=== PATIENT | male | born 1990 | race Hispanic/Latino ===

== ENCOUNTER 2018-05-22 00:16 | Inpatient (IN) | payer MEDICARE, MEDICAID ==
[2018-05-22 00:17] VITALS: BMI 26.3
[2018-05-22 00:20] VITALS: O2SAT 99
--- NOTE | 2018-05-22 00:36 | C.PDOC ---
History Of Present Illness The patient is brought to the ED via ambulance as a transfer for psychiatric admission. Patient was evaluated at [facility] prior to arrival and has been medically cleared and admitted to this hospital's psychiatric floor. Patient denies any physical complaints at this time. Time Seen by Provider: 05/22/18 00:33 Chief Complaint (Nursing): Psychiatric Evaluation History Per: Patient History/Exam Limitations: no limitations Onset/Duration Of Symptoms: Hrs Current Symptoms Are (Timing): Still Present Suicide/Self Injury Attempted (Context): None Severity: None Pain Scale Rating Of: 0 Involuntary Hold By: None Recent travel outside of the [place]: No Additional History Per: Patient Past Medical History Reviewed: Historical Data, Nursing Documentation, Vital Signs Vital Signs: Last Vital Signs Temp 98.4 F 05/22/18 00:20 Pulse 103 H 05/22/18 00:20 Resp 16 05/22/18 00:20 BP 142/96 H 05/22/18 00:20 Pulse Ox 99 05/22/18 00:20 - Medical History PMH: Anxiety, Asthma (as a child), Bipolar Disorder, Depression, Gastritis, HTN (not taking meds), Migraine, Personality Disorder, Pneumonia, Post Traumatic Stress Disorder, Seizures Denies: Arthritis, Cardia Arrhythmia, CHF, Diabetes, Hepatitis, HIV, Hypercholesterolemia, Mitral Valve Prolapse, Paranoia, Peripheral Edema, Chronic Kidney Disease, Schizophrenia, Sexually Transmitted Disease Surgical History: Appendectomy Denies: Cholecystectomy, Coronary Stent, Pacemaker - [facility] Procedures CONTINUOUS INVASIVE MECHANICAL VENTILATION <96 CONSEC HRS (04/17/14) ESOPHAGOGASTRODUODENOSCOPY [EGD] W/CLOSED BIOPSY (04/20/07) GROUP PSYCHOTHERAPY (12/24/15) INDIVIDUAL PSYCHOTHERAPY, SUPPORTIVE (12/24/15) INJECT/INFUSE NEC (04/18/06) INSERT ENDOTRACHEAL TUBE (02/26/13) INSERT GASTRIC TUBE NEC (04/17/14) INTRODUCTION OF ANTI-INFLAMMATORY INTO MUSCLE, PERC APPROACH (08/22/15) INTRODUCTION OF LOCAL ANESTHETIC INTO MUSCLE, PERC APPROACH (08/22/15) LAPAROSCOP APPENDECTOMY (03/31/12) MEDICATION MANAGEMENT (09/19/15) NEBULIZER THERAPY (02/19/07) PSYCHIAT DRUG THERAP NEC (12/12/14) VACCINATION NEC (02/26/13) Family History: States: Unknown Family Hx - Social History Hx Tobacco Use: Yes Hx Alcohol Use: No Hx Substance Use: No - Immunization History Hx Tetanus Toxoid Vaccination: No Hx Influenza Vaccination: No Hx Pneumococcal Vaccination: No Review Of Systems Constitutional: Negative for: Fever, Chills Cardiovascular: Negative for: Chest Pain, Palpitations Respiratory: Negative for: Cough, Shortness of Breath Gastrointestinal: Negative for: Nausea, Vomiting, Abdominal Pain Skin: Negative for: Rash, Lesions, Jaundice, Bruising Psych: Positive for: Other (psychiatric admission ) Physical Exam - Physical Exam Appears: Non-toxic, No Acute Distress Skin: Warm, Dry Head: Normacephalic Chest: Symmetrical, No Deformity Cardiovascular: Rhythm Regular, No Murmur Respiratory: No Rales, No Rhonchi, No Wheezing Extremity: Normal ROM Neurological/Psych: Oriented x3 ED Course And Treatment O2 Sat by Pulse Oximetry: 99 Disposition Discussed With DrChris: Piter Figueroa Comment: accepted the pt on his service and took over the care at 12:36 AM Doctor Will See Patient In The: Hospital Counseled Patient/Family Regarding: Studies Performed, Diagnosis - Disposition Disposition: HOSPITALIZED Disposition Time: 00:36 Condition: FAIR Forms: [employer] ([place]) - Clinical Impression Clinical Impression: Major depression, PTSD (post-traumatic stress disorder) - Scribe Statement The provider has reviewed the documentation as recorded by the Scribe (Darby Weems) Provider Attestation: All medical record entries made by the Scribe were at my direction and per sonally dictated by me. I have reviewed the chart and agree that the record accurately reflects my personal performance of the history, physical exam, medical decision making, and the department course for this patient. I have also personally directed, reviewed, and agree with the discharge instructions and disposition. Decision To Admit - Pt Status Changed To: Hospital Disposition Of: Inpatient - Admit Certification Admit to Inpatient:: After my assessment, the patient will require hospitalization for at least two midnights. This is because of the severity of symptoms shown, intensity of services needed, and/or the medical risk in this patient being treated as an outpatient. - InPatient: Physician Admission Certification: I certify that this patient requires 2 or more midnights of care for the following reason:: After my assessment, the patient will require hospitalization for at least two midnights. This is because of the severity of symptoms shown, intensity of services needed, and/or the medical risk in this patient being treated as an outpatient. - . Bed Request Type: Psychiatry Admitting Physician: Piter Figueroa Patient Diagnosis: Major depression, PTSD (post-traumatic stress disorder)
--- NOTE | 2018-05-22 05:14 | PCM.BM ---
<Ahmet Londono Izzy - Last Filed: 05/22/18 05:12> Treatment Plan Problems - Problems identified on initial assessmt Suicidal Ideation Date Initiated: 05/22/18 Time Initiated: 01:15 Assessment reference: NA Status: Monitor Ineffective Coping Date Initiated: 05/22/18 Time Initiated: 01:15 Assessment reference: NA Status: Active Treatment assets and liabiliti Patient Assests: cooperative, ADL independent, negotiates basic needs, cognitively intact Patient Liabilities: relationship conflicts - Milieu Protocol Maintain good personal hygiene: daily Encourage regular showers, daily Remind pa tient to perform daily oral care, daily Assist patient to perform ADL's Conduct patient checks and document Observation sheet: Q15 minutes Maintain personal safety: every shift Educate patient to report safety concerns to staff, every shift Monitor environment for contraband/sharps Medication safety: Monitor for expected outcome, potential side effects: every shift, Assess barriers to learning: every shift, Assess readiness for medication education: every shift <Smita Stallworth - Last Filed: 05/22/18 12:32> Family Contact Family involvement: Patient does not wish Family/SO involvement Family contact: Patient declines to allow family contact at present - Goals for Treatment Patient goals for treatment: "I want to return to my psychiatrist, Dr. Moreno." Discharge/Continuing Care - Education Needs Education Needs: Patient Medication, Patient Diagnosis/Disease Process, Patient Coping Skills - Discharge Discharge Criteria: Free of Suicidal thoughts, Normal sleep pattern, Ability to care for self, Reduction of target symptoms Discharge to:: Home - Treatment Team Participation Discussed with Family/SO: No Was Patient/Family/SO present at Treatment Team Meeting: Yes <Jerad Perdomo - Last Filed: 05/22/18 12:44> - Diagnosis (1) Major depressive disorder Status: Acute Interventions: 05/22/18 12:43 * Assess/adjust medications daily and /or as needed * See patient on an individual basis 7x/week to assess symptoms of depression * Monitor for side effects & effectiveness of medications * (2) PTSD (post-traumatic stress disorder) Status: Acute Interventions: 05/22/18 12:43 * Assess/adjust medications daily and /or as needed * See patient on an individual basis 7x/week to assess symptoms of depression * Monitor for side effects & effectiveness of medications *
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
[2018-05-23 06:32] VITALS: BP 118/71; PULSE 91; RESP 18; TEMP 97.6
--- NOTE | 2018-05-23 10:32 | PCM.PYCHPN ---
Psychiatric Progress Note - Psychiatric Progress Note Patient seen today, length of contact: 15 min Patient Chief Complaint: I was feeling depressed and suicidal.' Medication Change: Yes Medical Record Reviewed: Yes Mental Status Examination - Cognitive Function Orientation: Person, Place, Situation, Time Memory: Intact Attention: WNL Concentration: Poor Association: WNL Fund of Knowledge: Poor - Mood Mood: Depressed, Anxious - Affect Affect: Constricted, Depressed - Speech Speech: Soft - Formal Thought Process Formal Thought Process: No Impairment - Suicidal Ideation Suicidal Ideation: No - Homicidal Ideation Homicidal Ideation: No Goal/Treatment Plan - Goal/Treatment Plan Need for Continued Stay: Discharge may exacerbated symptoms, Severe functional impairment Progress Toward Problem(s) and Goals/Treatment Plan: Bipolar depressed severe without psychotic features Borderline personality disorder General anxiety disorder History of posttraumatic stress disorder chronic History of ADHD CBT Psychoeducation and support daily As need medications All risks, benefits and alternatives of the meds discussed, and the pt agreed and understood. Attend groups and activities Individual therapy daily Encourage compliance with meds and after care Klonopin 1 mg p.o. 3 times daily Seroquel 400 mg p.o. nightly Hydroxyzine 25 mg p.o. every 6 hours as needed Ativan 1 mg p.o. every 6 hours as needed Hydroxyzine 25 mg p.o. every 6 hours as needed Neurontin 600 mg p.o. 3 times daily - Smoking Cessation Smoking Cessation Initiated: No
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
--- NOTE | 2018-05-23 23:19 | CP.PCM.CON ---
History of Present Illness - History of Present Illness History of Present Illness: Podiatry - Dr. Ruiz 28 year old male patient seen and evaluated for right great toe pain. Patient reports an elongated, incurvated nail to right great toe which causes him discomfort when ambulating. Denies any recent trauma. Denies n/v/f/d/c/sob/martin/cp. No other pedal complaints. Review of Systems - Review of Systems All systems: reviewed and no additional remarkable complaints except (as per HPI) Past Patient History - Infectious Disease Hx of Infectious Diseases: None - Tetanus Immunizations Tetanus Immunization: Unknown - Past Medical History & Family History Past Medical History?: Yes - Past Social History Smoking Status: Never Smoked - CARDIAC Hx Cardia Arrhythmia: No Hx Congestive Heart Failure: No Hx Hypercholesterolemia: No Hx Hypertension: Yes (not taking meds) Hx Mitral Valve Prolapse: No Hx Pacemaker: No Hx Peripheral Edema: No - PULMONARY Hx Asthma: Yes (as a child, reports having Ventolin PRN) Hx Pneumonia: Yes - NEUROLOGICAL Hx Migraine: Yes Hx Seizures: Yes - HEENT Hx HEENT Problems: No - RENAL Hx Chronic Kidney Disease: No - ENDOCRINE/METABOLIC Hx Endocrine Disorders: No - HEMATOLOGICAL/ONCOLOGICAL Hx Human Immunodeficiency Virus (HIV): No - INTEGUMENTARY Hx Dermatological Problems: No - MUSCULOSKELETAL/RHEUMATOLOGICAL Hx Arthritis: No - GASTROINTESTINAL Hx Gastritis: Yes - GENITOURINARY/GYNECOLOGICAL Hx Sexually Transmitted Disorders: No - PSYCHIATRIC Hx Substance Use: No - SURGICAL HISTORY Hx Appendectomy: Yes Hx Cholecystectomy: No Hx Coronary Stent: No - ANESTHESIA Hx Anesthesia: Yes Hx Anesthesia Reactions: No Hx Malignant Hyperthermia: No Meds Allergies/Adverse Reactions: Allergies Allergy/AdvReac Type Severity Reaction Status Date / Time lamotrigine [From Lamictal] Allergy Intermediate RASH Verified 05/21/18 19:14 aspirin Allergy RASH Verified 05/21/18 19:14 Penicillins Allergy RASH Verified 05/21/18 19:14 lobster Allergy Mild Uncoded 05/22/18 00:29 Physical Exam - Constitutional Appears: Well, Non-toxic, No Acute Distress - Extremities Exam Additional comments: RLE focused physical exam VASC: DP and PT pulses palpable 2/4. CFT <3 seconds to all digits x5. Temperature gradient warm to warm. No edema noted. NEURO: Gross sensation intact. DERM: Thickened, elongated, and incurvated right hallucal nail - no separation of nail bed. No open lesions present. No erythema, drainage, purulence, fluctuance. ORTHO: Pain on palpation hallux. - Neurological Exam Neurological exam: Alert, Oriented x3 Results - Vital Signs Recent Vital Signs: Last Vital Signs Temp 97.6 F 05/23/18 06:31 Pulse 91 H 05/23/18 06:31 Resp 18 05/23/18 06:31 BP 118/71 05/23/18 06:31 Pulse Ox 99 05/22/18 00:45 Assessment & Plan - Assessment and Plan (Free Text) Assessment: 28M with painful incurvated nail, right hallux Plan: Patient seen and evaluated Discussed with attending, Dr. Ruiz Right hallucal nail debrided w/o incident Stable per podiatry, will sign off at this time Thank you for the consult
== END 2018-05-23 13:20 | disposition left against medical advice (07) | DRG 885 ==
LOC: C.ER 00:16 → C.5E 00:51
PROC: GZ3ZZZZ Medication Management (ICD-10-PCS; principal; 2018-05-22)
PROC: GZHZZZZ Group Psychotherapy (ICD-10-PCS; 2018-05-22)
PROC: GZ56ZZZ Individual Psychotherapy, Supportive (ICD-10-PCS; 2018-05-22)
DX: F31.4 Bipolar disorder, current episode depressed, severe, without psychotic features (principal); F41.1 Generalized anxiety disorder; F43.12 Post-traumatic stress disorder, chronic; F60.3 Borderline personality disorder; I10 Essential (primary) hypertension; J45.909 Unspecified asthma, uncomplicated; R73.03 Prediabetes; M41.9 Scoliosis, unspecified; Z86.59 Personal history of other mental and behavioral disorders; Z87.01 Personal history of pneumonia (recurrent); Z81.8 Family history of other mental and behavioral disorders; Z90.49 Acquired absence of other specified parts of digestive tract; Z91.14 Patient's other noncompliance with medication regimen